=== PATIENT | female | born 1960 | race American Indian/Alaskan Native ===

== ENCOUNTER 2016-09-03 14:35 | Emergency (ER) | payer SELFPAY ==
[2016-09-03] MEDS ORDERED: Lidocaine 1% w Epi 1:100,000 Inj ONE (16:12)
--- NOTE | 2016-09-03 16:18 | CT ---
PROCEDURE: CT HEAD WITHOUT CONTRAST. HISTORY: head injury and laceration COMPARISON: None available. TECHNIQUE: Axial computed tomography images were obtained through the head/brain without intravenous contrast. Radiation dose: Total exam DLP = 912 mGy-cm. This CT exam was performed using one or more of the following dose reduction techniques: Automated exposure control, adjustment of the mA and/or kV according to patient size, and/or use of iterative reconstruction technique. FINDINGS: HEMORRHAGE: No intracranial hemorrhage. BRAIN: No mass effect or edema. No atrophy or chronic microvascular ischemic changes. VENTRICLES: Unremarkable. No hydrocephalus. CALVARIUM: Unremarkable. PARANASAL SINUSES: Unremarkable as visualized. No significant inflammatory changes. MASTOID AIR CELLS: Unremarkable as visualized. No inflammatory changes. OTHER FINDINGS: None. IMPRESSION: Normal CT of the Head.
--- NOTE | 2016-09-03 16:37 | C.PDOC ---
History Of Present Illness <Tali Cummings - Last Filed: 09/03/16 17:10> <Danielle Davey - Last Filed: 09/04/16 23:14> 55 y/o female presents to ED with c/o head laceration onset several hours prior to arrival. Patient reports she tripped and fell at her sister's house at 13:00 today, striking her head on the ground. Questionable LOC. Patient also reports left shoulder pain. Patient admits to drinking alcohol yesterday. Denies visual changes, nausea, vomiting, extremity weakness or numbness, or other complaints. (Danielle Davey) <Tali Cummings - Last Filed: 09/03/16 17:10> History Per: Patient History/Exam Limitations: no limitations Onset/Duration Of Symptoms: Other (just prior to arrival) Current Symptoms Are (Timing): Still Present Quality Of Symptoms: Painful, Draining Recent travel outside of the [place]: No <Danielle Davey - Last Filed: 09/04/16 23:14> Time Seen by Provider: 09/03/16 15:24 Chief Complaint (Nursing): Abnormal Skin Integrity Past Medical History Reviewed: Historical Data, Nursing Documentation, Vital Signs - Medical History PMH: HTN Family History: States: Unknown Family Hx - Social History Hx Alcohol Use: No Hx Substance Use: No <Danielle Davey - Last Filed: 09/04/16 23:14> Vital Signs: Last Vital Signs Temp 97.9 F 09/03/16 17:10 Pulse 87 09/03/16 17:10 Resp 18 09/03/16 17:10 BP 132/89 09/03/16 17:10 Pulse Ox 98 09/03/16 17:12 Review Of Systems Except As Marked, All Systems Reviewed And Found Negative. Constitutional: Negative for: Fever, Chills Respiratory: Negative for: Cough, Shortness of Breath, Wheezing Gastrointestinal: Negative for: Nausea, Vomiting Musculoskeletal: Positive for: Shoulder Pain Skin: Positive for: Other (head laceration) Neurological: Positive for: Headache. Negative for: Weakness, Numbness, Dizziness <Danielle Davey - Last Filed: 09/04/16 23:14> Physical Exam - Physical Exam Appears: Non-toxic, No Acute Distress Skin: Warm, Dry Head: Normacephalic, Laceration (5.0 cm U shaped laceration left parietal scalp with underlying hematoma), Other ((+) Hematoma left parietal scalp ) Eye(s): bilateral: Normal Inspection, PERRL, EOMI Ear(s): Bilateral: Normal Oral Mucosa: Moist Throat: No Erythema, No Exudate Neck: Normal ROM, No Midline Cervical Tenderness, No Paracervical Tenderness, No Step Off Deformity, Supple Cardiovascular: Rhythm Regular, No Friction Rub, No Murmur Respiratory: Normal Breath Sounds, No Rales, No Rhonchi, No Wheezing Gastrointestinal/Abdominal: Soft, No Tenderness Back: Normal Inspection, No Vertebral Tenderness, No Paraspinal Tenderness Extremity: Normal ROM, Capillary Refill (< 2 sec. ) Neurological/Psych: Oriented x3, Normal Speech, Normal Cranial Nerves, Normal Motor, Normal Sensation Gait: Steady <Danielle Davey - Last Filed: 09/04/16 23:14> ED Course And Treatment O2 Sat by Pulse Oximetry: 98 (RA) Pulse Ox Interpretation: Normal - CT Scan/US CT Head Other Rad Studies (CT/US): Read By Radiologist, Radiology Report Reviewed CT/US Interpretation: FINDINGS: HEMORRHAGE: No intracranial hemorrhage. BRAIN : No mass effect or edema. No atrophy or chronic microvascular ischemic changes. VENTRICLES: Unremarkable. No hydrocephalus. CALVARIUM: Unremarkable. PARANASAL SINUSES: Unremarkable as visualized. No significant inflammatory changes. MASTOID AIR CELLS: Unremarkable as visualized. No inflammatory changes. OTHER FINDINGS: None. IMPRESSION: Normal CT of the Head. Left Shoulder X-Ray Other Rad Studies (CT/US): Interpreted By Me CT/US Interpretation: Negative for fx or dislocation Progress Note: Treated with Tylenol. Left shoulder x-ray and CT Head ordered, reviewed. CT head negative for acute abnormality. Laceration repaired by me, using 4 subcutaneous sutures, and 9 bhavani. Patient tolerated procedure well. On reassessment, patient is resting comfortably, and is in no acute distress. Patient instructed to follow up with clinic/PMD for wound check. <Danielle Davey - Last Filed: 09/04/16 23:14> Supervising Attending Note - Supervising Attending Note The Documented history was done by the: Physician Study Hall Supervisor The documented physical exam was done by the: Physician Study Hall Supervisor The documented procedures were done by the: Physician Study Hall Supervisor - Attestation: I have personally seen and examined this patient.: Yes I have fully participated in the care of the patient.: Yes I have reviewed all pertinent clinical information, including history, physical exam and plan: Yes <Tali Cummings - Last Filed: 09/03/16 17:10> <Danielle Davey - Last Filed: 09/04/16 23:14> - Notes: Notes:: SP HEAD LAC LEGAL ARBITRATOR. TRIP AND FALL LEGAL ARBITRATOR. ?LOC. NO NV, NO OTHER ASSOC SX OR TRAUMA. EXAM ABOVE (EmilianoTali) Procedure: Wound Repair - Time Out Time Out: Side verified, Site verified - Procedure Procedure: Wound Repair: Scalp laceration - Consent Obtained Consent obtained: Verbal - Performed by Performed by: Mid-level Provider (Tamica) - Indications Indication(s):: Laceration - Location Location:: Scalp Dimensions Length cm: 5 Dimensions width cm: 1 Depth:: Epidermis (and subcutaneous fat) - Anesthetic Technique Anesthetic Technique: Local Local/Regional Anesthetic:: Lidocaine 1% w/epi - Debris Debris:: None - Complexity Complexity:: Intermediate (2 layer) (outer layer 9 bhavani) - Wound repair method Sutures:: # (Four ), Size (3-0 ), Type (chromic), Technique (dermal sutures) - Patient tolerated procedure Patient Tolerated Procedure:: Well <Danielle Davey - Last Filed: 09/04/16 23:14> Medical Decision Making <Tali Cummings - Last Filed: 09/03/16 17:10> <Danielle Davey - Last Filed: 09/04/16 23:14> Medical Decision Making: On re-exam, patient reports improvement of symptoms. Lungs are CTA, heart is RRR , abdomen is soft, non-tender and tolerating PO well. Ambulatory in the ED with steady gait. Follow up with the medical doctor within 1-2 days. Return if worsened. (Danielle Davey) Disposition <Tali Cummings - Last Filed: 09/03/16 17:10> - Disposition Disposition Time: 16:00 <Danielle Davey - Last Filed: 09/04/16 23:14> - Disposition Referrals: [facility] [Outside] Disposition: HOME/ ROUTINE Condition: IMPROVED Additional Instructions: Keep the wound clean and dry for 3 days. Then clean twice a day and apply bacitracin. Richey to be removed within 10-14 days. Prescriptions: Bacitracin 1 gm TOP BID #1 tube Ibuprofen [Motrin] 600 mg PO TID #21 tab Instructions: Laceration (ED), Head Injury (ED) - Clinical Impression Clinical Impression: Scalp laceration, Head injury <Tali Cummings - Last Filed: 09/03/16 17:10> - PA / PROGRAM/MUSIC DIRECTOR / Resident Statement MD/DO has reviewed & agrees with the documentation as recorded. - Scribe Statement The provider has reviewed the documentation as recorded by the Scribe <Danielle Davey - Last Filed: 09/04/16 23:14> - Scribe Statement Jewel Vazquez Provider Scribe Attestation: All medical record entries made by the Scribe were at my direction and personally dictated by me. I have reviewed the chart and agree that the record accurately reflects my personal performance of the history, physical exam, medical decision making, and the department course for this patient. I have also personally directed, reviewed, and agree with the discharge instructions and disposition. (Danielle Davey)
[2016-09-03 17:11] VITALS: BP 132/89; PULSE 87; RESP 18; TEMP 97.9
[2016-09-03 17:12] VITALS: O2SAT 98
--- NOTE | 2016-09-04 09:11 | RAD ---
PROCEDURE: Radiographs of the Left Shoulder HISTORY: shoulder injury, fall COMPARISON: No prior. FINDINGS: BONES: There is osteolysis or resection of the lateral clavicle resulting in a widened acromioclavicular joint space. Above the lateral clavicle are 2 well corticated ossifications. No acute pathology is suspect. No acute fracture or dislocation suggested JOINTS: As above SOFT TISSUES: As above OTHER FINDINGS: None. IMPRESSION: Lateral clavicle/ periclavicular prior trauma and/or surgery inferred. No acute fracture or dislocation suspect
== END 2016-09-03 17:23 | disposition home or self-care (01) ==
LOC: C.ER 14:35
DX: S01.01XA Laceration without foreign body of scalp, initial encounter (principal); W01.0XXA Fall on same level from slipping, tripping and stumbling without subsequent striking against object, initial encounter; Y92.009 Unspecified place in unspecified non-institutional (private) residence as the place of occurrence of the external cause

== ENCOUNTER 2017-07-07 23:32 | Emergency (ER) | payer SELFPAY ==
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
[2017-07-08 06:37] VITALS: BP 127/80; PULSE 85; RESP 20; TEMP 98.1; O2SAT 100
== END 2017-07-08 06:37 | disposition home or self-care (01) ==
LOC: SUPCPDRO 23:32 → C.ER 23:32
DX: Z59.0 Homelessness (principal); I10 Essential (primary) hypertension

== ENCOUNTER 2017-07-18 17:16 | Emergency (ER) | payer SELFPAY ==
[2017-07-18 18:38] VITALS: BP 99/67; PULSE 76; RESP 20; TEMP 97.3; O2SAT 99
--- NOTE | 2017-07-18 20:37 | C.PDOC ---
History Of Present Illness 56 y/o female in ED s/p fall. pt sts her right leg gives out and she falls often. pt admits to drinking beer earlier. last tdap less than 5 yrs. no loc, denies neck pain, vision changes, headache, nausea and vomiting. Time Seen by Provider: 07/18/17 20:00 Chief Complaint (Nursing): Abnormal Skin Integrity History Per: Patient History/Exam Limitations: no limitations Onset/Duration Of Symptoms: Hrs (4) Location Of Injury: Right: Face Quality Of Symptoms: Painful Severity: Mild Past Medical History Reviewed: Historical Data, Nursing Documentation, Vital Signs Vital Signs: Last Vital Signs Temp 97.3 F L 07/18/17 18:37 Pulse 76 07/18/17 18:37 Resp 20 07/18/17 18:37 BP 99/67 L 07/18/17 18:37 Pulse Ox 99 07/18/17 23:49 - Medical History PMH: HTN Family History: States: Unknown Family Hx - Social History Hx Alcohol Use: Yes Hx Substance Use: No - Immunization History Hx Tetanus Toxoid Vaccination: No Hx Influenza Vaccination: No Hx Pneumococcal Vaccination: No Review Of Systems ENT: Negative for: Mouth Pain Cardiovascular: Negative for: Chest Pain Respiratory: Negative for: Cough, Shortness of Breath Gastrointestinal: Negative for: Nausea, Vomiting Musculoskeletal: Negative for: Neck Pain Skin: Positive for: Lesions (abrasions right side face) Neurological: Negative for: Weakness, Numbness, Headache Physical Exam - Physical Exam Appears: Non-toxic, No Acute Distress, Unkempt Skin: Warm, Dry, Other (abrasions to right lateral cheeckbone, mild swelling and tenderness ) Eye(s): bilateral: Normal Inspection, PERRL, EOMI Ear(s): Bilateral: Normal (no hemotympanum) Nose: No Epistaxis Oral Mucosa: Moist Neck: No Midline Cervical Tenderness, Supple Cardiovascular: Rhythm Regular, No Murmur Respiratory: No Decreased Breath Sounds, No Wheezing Gastrointestinal/Abdominal: Soft, No Tenderness Pulses: Left Radial: Normal, Right Radial: Normal Neurological/Psych: Oriented x3, Normal Speech, Normal Cognition, Normal Motor, Normal Sensation Gait: Steady ED Course And Treatment O2 Sat by Pulse Oximetry: 99 Medical Decision Making Medical Decision Making: fall with facial injury= head and facial bones ct,. wound care. 850 pm pt eloped from ed per rn. walking with steady gait. Disposition - Disposition Disposition: ELOPEMENT - ER ONLY Disposition Time: 20:50 Condition: STABLE Forms: [employer] [facility] (Macedonian) - Clinical Impression Clinical Impression: Accidental fall, Facial abrasion
[2017-07-18] MEDS ORDERED: Bacitracin 500 Units/gm Oint Foilpak UD TOP ONE (20:46)
== END 2017-07-18 20:50 | disposition left against medical advice (07) ==
LOC: C.ER 17:16
DX: S00.81XA Abrasion of other part of head, initial encounter (principal); W19.XXXA Unspecified fall, initial encounter; I10 Essential (primary) hypertension

== ENCOUNTER 2017-07-28 22:56 | Emergency (ER) | payer SELFPAY ==
[2017-07-28 23:02] VITALS: RESP 18
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
[2017-07-29 06:06] VITALS: BP 109/73; PULSE 78; TEMP 97.9; O2SAT 99
== END 2017-07-29 06:45 | disposition home or self-care (01) ==
LOC: SUPCPDRO 22:56 → C.ER 22:56
DX: F10.10 Alcohol abuse, uncomplicated (principal); Y90.9 Presence of alcohol in blood, level not specified

== ENCOUNTER 2017-10-08 17:16 | Emergency (ER) | payer SELFPAY ==
[2017-10-08 17:32] VITALS: RESP 16
[2017-10-08 17:47] VITALS: BMI 23.3
--- NOTE | 2017-10-08 18:07 | C.PDOC ---
History Of Present Illness 57 y/o female brought to ED by EMS for acute ETOH intoxication. Patient was found in [facility] intoxicated and at ED denies any suicidal ideation, homicidal ideation or any other physical complaints at this time. Time Seen by Provider: 10/08/17 17:25 Chief Complaint (Nursing): Substance Abuse History Per: Patient, EMS History/Exam Limitations: no limitations Onset/Duration Of Symptoms: Days Current Symptoms Are (Timing): Still Present Suicide/Self Injury Attempted (Context): None Modifying Factor(s): Alcohol Past Medical History Reviewed: Historical Data, Nursing Documentation, Vital Signs Vital Signs: Last Vital Signs Temp 98.6 F 10/08/17 19:22 Pulse 101 H 10/08/17 19:22 Resp 16 10/08/17 19:22 BP 104/71 10/08/17 19:22 Pulse Ox 96 10/08/17 19:22 - Medical History PMH: HTN, Schizophrenia Surgical History: No Surg Hx Family History: States: No Known Family Hx - Social History Hx Alcohol Use: Yes Hx Substance Use: No - Immunization History Hx Tetanus Toxoid Vaccination: No Hx Influenza Vaccination: No Hx Pneumococcal Vaccination: No Review Of Systems Constitutional: Negative for: Fever, Chills Cardiovascular: Negative for: Chest Pain Respiratory: Negative for: Shortness of Breath Gastrointestinal: Negative for: Nausea, Vomiting Skin: Negative for: Rash Psych: Positive for: Other (intoxication). Negative for: Suicidal ideation Physical Exam - Physical Exam Appears: Non-toxic, No Acute Distress, Other (ETOH on breath ) Skin: Warm, Dry Head: Atraumatic, Normacephalic Eye(s): bilateral: Normal Inspection Oral Mucosa: Moist Neck: Normal ROM, Supple Cardiovascular: Rhythm Regular Respiratory: Normal Breath Sounds, No Rales, No Rhonchi, No Wheezing Gastrointestinal/Abdominal: Soft, No Tenderness, No Guarding, No Rebound Neurological/Psych: Oriented x3, Normal Speech, Normal Cognition ED Course And Treatment O2 Sat by Pulse Oximetry: 95 (RA) Pulse Ox Interpretation: Normal Medical Decision Making Medical Decision Making: pt observed awake alert eating sandwich ambulating around er. Disposition - Disposition Referrals: Alcoholics Anonymous [Outside] Disposition: HOME/ ROUTINE Disposition Time: 08:00 Condition: STABLE Additional Instructions: follow up with your doctor. return to er with worsening symptoms or concerns. Instructions: Alcohol Use - When Is Drinking a Problem?, Effects of Alcohol on Your Health Forms: [employer] (Citizen Of [place]) - Clinical Impression Clinical Impression: Alcohol abuse - Scribe Statement The provider has reviewed the documentation as recorded by the Kaylaibsteffi Falcon All medical record entries made by the Kaylaibe were at my direction and personally dictated by me. I have reviewed the chart and agree that the record accurately reflects my personal performance of the history, physical exam, medical decision making, and the department course for this patient. I have also personally directed, reviewed, and agree with the discharge instructions and disposition.
[2017-10-08 19:24] VITALS: BP 104/71; PULSE 101; TEMP 98.6
[2017-10-08 20:54] VITALS: O2SAT 95
== END 2017-10-08 19:46 | disposition home or self-care (01) ==
LOC: C.ER 17:16
DX: F10.129 Alcohol abuse with intoxication, unspecified (principal); Y90.9 Presence of alcohol in blood, level not specified

== ENCOUNTER 2017-10-19 21:25 | Emergency (ER) | payer OTHER ==
[2017-10-19 21:25] VITALS: BMI 23.3
[2017-10-19 21:35] VITALS: BP 143/86; PULSE 94; TEMP 98.4; O2SAT 97
--- NOTE | 2017-10-19 21:38 | C.PDOC ---
History Of Present Illness 57 y/o female presents to the ED complaining of left leg pain, ongoing for the past few days. She denies any injury or blunt trauma. Patient states the pain began while she was walking and has been worsening since onset. She denies any chest pain, SOB, numbness, tingling, focal weakness, or other complaint. No recent surgery or prolonged period of immobility. Time Seen by Provider: 10/19/17 21:38 Chief Complaint (Nursing): Lower Extremity Problem/Injury History Per: Patient History/Exam Limitations: no limitations Onset/Duration Of Symptoms: Days Current Symptoms Are (Timing): Still Present Recent travel outside of the [place]: No Past Medical History Reviewed: Historical Data, Nursing Documentation, Vital Signs Vital Signs: Last Vital Signs Temp 98.4 F 10/19/17 21:27 Pulse 94 H 10/19/17 21:27 Resp 20 10/19/17 22:42 BP 143/86 10/19/17 21:27 Pulse Ox 97 10/19/17 22:34 - Medical History PMH: Depression, HTN, Schizophrenia Surgical History: Other Surgeries: Hysterectomy Family History: States: No Known Family Hx - Social History Hx Alcohol Use: Yes Hx Substance Use: No - Immunization History Hx Tetanus Toxoid Vaccination: No Hx Influenza Vaccination: No Hx Pneumococcal Vaccination: No Review Of Systems Except As Marked, All Systems Reviewed And Found Negative. Cardiovascular: Negative for: Chest Pain Respiratory: Negative for: Shortness of Breath Musculoskeletal: Positive for: Leg Pain Skin: Negative for: Lesions, Bruising Neurological: Negative for: Weakness, Numbness Physical Exam - Physical Exam Appears: Non-toxic, No Acute Distress Skin: Normal Color, Warm, Dry Head: Atraumatic, Normacephalic Eye(s): bilateral: Normal Inspection, PERRL, EOMI Nose: Normal Oral Mucosa: Moist Neck: Normal ROM Cardiovascular: Rhythm Regular, No Murmur Respiratory: Normal Breath Sounds, No Accessory Muscle Use, No Rales, No Rhonchi , No Wheezing Extremity: Normal ROM, Calf Tenderness (left), Capillary Refill (< 2 sec), No Deformity, No Swelling Pulses: Left Dorsalis Pedis: Normal, Right Dorsalis Pedis: Normal Neurological/Psych: Oriented x3, Normal Speech, Normal Motor, Normal Sensation, Other (No focal deficits) ED Course And Treatment O2 Sat by Pulse Oximetry: 97 (RA) Pulse Ox Interpretation: Normal - Other Rad x-ray left ankle X-Ray: Interpreted by Me, Viewed By Me Interpretation: No fracture, no dislocation x-ray left tib/fib X-Ray: Interpreted by Me, Viewed By Me Interpretation: No fracture, no dislocation Progress Note: Obtained x-rays of the left ankle and left tib/fib. D-dimer obtained, and is elevated. Patient treated with 80 mg Lovenox. Counseled patient regarding all diagnostic results and plan for duplex ultrasound. Patient instructed to return tomorrow morning for duplex to rule out DVT. There is agreement to discharge plan. Disposition Counseled Patient/Family Regarding: Studies Performed, Diagnosis, Need For Followup - Disposition Disposition: HOME/ ROUTINE Disposition Time: 22:32 Condition: STABLE Additional Instructions: Follow up in ED tomorrow morning for left leg duplex to rule out DVT (blood clot ). Return to ED if feel worse. Instructions: How to Prevent Blood Clots Forms: [employer] (Irish) - Clinical Impression Clinical Impression: Leg pain - PA / MOTION PICTURE COMMENTATOR / Resident Statement MD/DO has reviewed & agrees with the documentation as recorded. - Scribe Statement The provider has reviewed the documentation as recorded by the Scribe (Oksana Turner) All medical record entries made by the Scribe were at my direction and personally dictated by me. I have reviewed the chart and agree that the record accurately reflects my personal performance of the history, physical exam, medical decision making, and the department course for this patient. I have also personally directed, reviewed, and agree with the discharge instructions and disposition.
[2017-10-19] MEDS ORDERED: Enoxaparin 80 mg Syringe SC STA (22:16)
[2017-10-19] MEDS ORDERED: Enoxaparin 80 mg Syringe ONE (22:22)
[2017-10-19] MEDS ORDERED: Lidocaine 2% MPF (5 ml) Inj ONE (22:40)
[2017-10-19 22:42] VITALS: RESP 20
--- NOTE | 2017-10-20 11:10 | RAD ---
PROCEDURE: Left Ankle Radiographs. HISTORY: pain COMPARISON: None FINDINGS: BONES: No acute fracture or destructive bony lesion identified. JOINTS: Normal. No osteoarthritis. Ankle mortise maintained. Talar dome intact SOFT TISSUES: Moderate lateral malleolar soft tissue edema identified. OTHER FINDINGS: None. IMPRESSION: No acute fracture, subluxation or dislocation. Moderate lateral malleolar soft tissue edema identified.
--- NOTE | 2017-10-20 11:11 | RAD ---
PROCEDURE: Radiographs of the left tibia and fibula. HISTORY: pain COMPARISON: None available. TECHNIQUE: Frontal and lateral views obtained. FINDINGS: BONES: No acute fracture or destructive bony lesion identified. JOINT SPACES: Unremarkable. OTHER FINDINGS: None. IMPRESSION: Unremarkable radiographs of the left tibia and fibula.
== END 2017-10-19 22:41 | disposition home or self-care (01) ==
LOC: C.ER 21:25
DX: M79.605 Pain in left leg (principal); I10 Essential (primary) hypertension; Z87.891 Personal history of nicotine dependence
CPT/HCPCS: 73590; 73610; 85378; 96372; 99283; J1650

== ENCOUNTER 2017-10-20 12:54 | Emergency (ER) | payer MEDICAID ==
[2017-10-20 12:54] VITALS: BMI 23.3
--- NOTE | 2017-10-20 13:52 | C.PDOC ---
History Of Present Illness 57 year old female presents to the emergency department for an ultrasound of her left leg. Patient was seen in the ED yesterday for complaints of left leg pain persisting for one week, and was told to return today to get her ultrasound completed. Time Seen by Provider: 10/20/17 13:30 Chief Complaint (Nursing): Lower Extremity Problem/Injury History Per: Patient History/Exam Limitations: no limitations Onset/Duration Of Symptoms: Days (7) Current Symptoms Are (Timing): Still Present Past Medical History Reviewed: Historical Data, Nursing Documentation, Vital Signs Vital Signs: Last Vital Signs Temp 99.0 F 10/20/17 16:45 Pulse 80 10/20/17 16:45 Resp 18 10/20/17 16:45 BP 127/86 10/20/17 16:45 Pulse Ox 100 10/20/17 16:45 - Medical History PMH: Depression, HTN, Schizophrenia Surgical History: Family History: States: No Known Family Hx - Social History Hx Alcohol Use: Yes Hx Substance Use: No - Immunization History Hx Tetanus Toxoid Vaccination: No Hx Influenza Vaccination: No Hx Pneumococcal Vaccination: No Review Of Systems Musculoskeletal: Positive for: Leg Pain Physical Exam - Physical Exam Appears: Non-toxic, No Acute Distress Skin: Normal Color, Warm, Dry, No Other (erythema) Head: Atraumatic, Normacephalic Eye(s): bilateral: Normal Inspection Nose: Normal Neck: Normal Chest: Symmetrical Cardiovascular: Rhythm Regular Respiratory: Normal Breath Sounds, No Accessory Muscle Use, No Wheezing Extremity: Normal ROM, Pedal Edema (trace left), Calf Tenderness (mild tenderness to the left calf; No palpable cord), No Deformity, No Swelling, No Other Pulses: Left Dorsalis Pedis: Normal Neurological/Psych: Oriented x3, Normal Speech Gait: Steady ED Course And Treatment O2 Sat by Pulse Oximetry: 100 (RA) Pulse Ox Interpretation: Normal Medical Decision Making Medical Decision Making: Impression:Calf pain, r/o DVT. 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 ETA 1545 [id number] Venous doppler was negative for DVT Patient re-evaluated resting comfortably in chair and explained the results. She was advised to elevate extremity and take analgesics. Rx given. Patient instructed follow up with PMD Disposition Counseled Patient/Family Regarding: Diagnosis, Need For Followup, Rx Given - Disposition Referrals: Jenny Castellon MD [Medical Doctor] - Disposition: HOME/ ROUTINE Disposition Time: 16:43 Condition: GOOD Additional Instructions: Your doppler study today was negative, meaning no DVT in leg Please take pain medicine as needed and follow up with your doctor for further care Prescriptions: Ibuprofen [Motrin] 600 mg PO Q8 #30 tab Instructions: Muscle and Bone Pain (DC) Forms: [employer] (Korean) - POA Present On Arrival: None - Clinical Impression Clinical Impression: Leg pain, left - 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 - Scribe Statement The provider has reviewed the documentation as recorded by the Scribe (Warner Alvarez) All medical record entries made by the Scribe were at my direction and personally dictated by me. I have reviewed the chart and agree that the record accurately reflects my personal performance of the history, physical exam, medical decision making, and the department course for this patient. I have also personally directed, reviewed, and agree with the discharge instructions and disposition.
[2017-10-20 15:29] VITALS: TEMP 99
[2017-10-20 16:42] VITALS: O2SAT 100
[2017-10-20 16:46] VITALS: BP 127/86; PULSE 80; RESP 18
--- NOTE | 2017-10-22 09:42 | VASCLAB ---
PROCEDURE: Left Lower Extremity Venous Duplex Exam. HISTORY: calf pain x1 week, Ddimer elevated PRIORS: None. TECHNIQUE: Left common femoral, femoral, popliteal and posterior tibial, peroneal and great saphenous veins were evaluated. Flow was assessed with color Doppler, compressibility, assessment of phasic flow and augmentation response. Report prepared by LATRICIA Madden FINDINGS: LEFT: 1. Common Femoral Vein: 1.1. Compressibility - Fully compressible: Thrombus - None : Flow - Phasic: Augmentation -Normal: Reflux - None. 2. Femoral Vein: 2.1. Compressibility - Fully compressible: Thrombus - None: Flow - Phasic: Augmentation -Normal: Reflux - None. 3. Popliteal Vein: 3.1. Compressibility - Fully compressible: Thrombus - None: Flow - Phasic: Augmentation -Normal: Reflux - None. 4. Posterior Tibial Vein: 4.1. Compressibility - Fully compressible: Thrombus - None: Flow - Phasic: Augmentation -Normal: Reflux - None. 5. Peroneal Vein: 5.1. Compressibility - Fully compressible: Thrombus - None: Flow - Phasic: Augmentation -Normal: Reflux - None. 6. Great Saphenous Vein: 6.1. Compressibility - Fully compressible: Thrombus - None: Flow - Phasic: Augmentation - Normal: Reflux - None. OTHER FINDINGS: IMPRESSION: No evidence of deep or superficial vein thrombosis of the left lower extremity with excellent venous flow. Normal valve function noted of the left side. Normal venous flow noted in the right common femoral vein.
== END 2017-10-20 17:19 | disposition home or self-care (01) ==
LOC: C.ER 12:54
DX: M79.605 Pain in left leg (principal)

== ENCOUNTER 2017-11-13 13:37 | Emergency (ER) | payer OTHER ==
[2017-11-13 13:37] VITALS: BMI 23.3
--- NOTE | 2017-11-13 15:16 | RAD ---
PROCEDURE: Right Wrist Radiographs. HISTORY: Rule out fracture COMPARISON: None. FINDINGS: BONES: No no evidence of acute displaced fracture nor dislocation. JOINTS: Normal. No dislocation. SOFT TISSUES: Vascular calcifications present. No radiopaque foreign bodies. OTHER FINDINGS: None. IMPRESSION: Normal right wrist radiographIf symptoms persist or occult fracture suspected clinically recommend repeat radiographs in 7-10 days as most fractures should become radiographically evident in this timeframe. S.
--- NOTE | 2017-11-13 15:25 | RAD ---
PROCEDURE: Radiographs of the Lumbar Spine. HISTORY: r/o fx COMPARISON: No prior. FINDINGS: BONES: No acute compression fractures no retropulsed fragments. Vertebral bodies exhibit normal stature. Vertebral bodies facets normally aligned. DISC SPACES: Minor multilevel posterior disc space narrowing. Small marginal anterior osteophyte formation seen at several levels. . Facet joints are quite hypertrophic L5-S1 through the L2-L3 levels in decreasing order of severity hearing OTHER FINDINGS: None. IMPRESSION: No acute fractures. Mild mild to moderate multilevel degenerative spondylosis
[2017-11-13 15:34] VITALS: BP 148/89; PULSE 73; RESP 18; TEMP 97.7; O2SAT 100
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
== END 2017-11-13 15:36 | disposition home or self-care (01) ==
LOC: C.ER 13:37
DX: M54.5 Low back pain (principal)